=== PATIENT | female | born 1985 | race Caucasian/White ===

== ENCOUNTER 2016-06-09 07:26 | Emergency (ER) | payer BC ==
[2016-06-09 07:34] VITALS: BP 130/66
--- NOTE | 2016-06-09 07:58 | UC ---
Abdominal Pain Female HPI - HPI Summary HPI Summary: epigastric pain and vomiting x 2 weeks. Came in today because she didn't sleep last pm. - History of Current Complaint Chief Complaint: UCGeneralIllness Stated Complaint: ABD PAIN,VOMITING Time Seen by Provider: 06/09/16 07:50 Hx Obtained From: Patient Hx Last Menstrual Period: 06/02/16 ?: No Onset/Duration: Gradual Onset, Lasting Weeks - 2, Still Present Timing: Constant Severity Initially: Moderate Severity Currently: Severe Pain Intensity: 8 Pain Scale Used: 0-10 Numeric Location: Discrete At: RUQ, Epigastric Radiates: No Character: Sharp Aggravating Factor(s): Nothing Alleviating Factor(s): Nothing Associated Signs and Symptoms: Positive: Vomiting. Negative: Urinary Symptoms - Risk Factors Ectopic Risk Factor: Maternal Age ^ 30 Ovarian Torsion Risk Factor: Reproductive Age Allergies/Adverse Reactions: Allergies Allergy/AdvReac Type Severity Reaction Status Date / Time No Known Allergies Allergy Verified 06/09/16 07:34 Home Medications: Home Medications Omeprazole CAP* [Prilosec CAP* 20 MG] 20 mg PO DAILY 06/09/16 [History Confirmed 06/09/16] buPROPion TAB* [Wellbutrin TAB*] 200 mg PO DAILY 06/09/16 [History Confirmed ] PMH/Surg Hx/FS Hx/Imm Hx Endocrine History Of: Reports: Thyroid Disease Denies: Diabetes Cardiovascular History Of: Denies: Hypertension Respiratory History Of: Denies: Asthma GI/ History Of: Denies: Ulcer - Surgical History Surgical History: Yes Surgery Procedure, Year, and Place: Episiotomy, cyst on tailbone removed, tonsils. Esure - Family History Known Family History: Positive: Hypertension - mother, Diabetes - mother and father - Social History Alcohol Use: None Substance Use Type: None Smoking Status (MU): Heavy Every Day Tobacco Smoker Type: Cigarettes Amount Used/How Often: 9 per day Review of Systems Constitutional: Negative Skin: Negative Eyes: Negative ENT: Negative Respiratory: Negative Cardiovascular: Negative Gastrointestinal: Abdominal Pain, Vomiting Genitourinary: Negative Motor: Negative Neurovascular: Negative Musculoskeletal: Negative Neurological: Negative Psychological: Negative All Other Systems Reviewed And Are Negative: Yes Physical Exam Triage Information Reviewed: Yes Appearance: Ill-Appearing, Pain Distress, Obese Vital Signs: Initial Vital Signs Temp 97.3 F 06/09/16 07:30 Pulse 104 06/09/16 07:30 Resp 14 06/09/16 07:30 BP 130/66 06/09/16 07:30 Pulse Ox 100 06/09/16 07:30 Vital Signs Reviewed: Yes Eyes: Positive: Conjunctiva Clear ENT: Positive: Hearing grossly normal. Negative: Muffled/hoarse voice Neck: Positive: Supple Respiratory: Positive: Lungs clear, Normal breath sounds, No respiratory distress Cardiovascular: Positive: RRR, No Murmur, Pulses Normal, Brisk Capillary Refill Abdomen Description: Positive: No Organomegaly, Soft, Guarding - RUQ, Other: - tender RUQ. Negative: CVA Tenderness (R), CVA Tenderness (L), Distended, McBurney's Point Tenderness, Peritoneal Signs Bowel Sounds: Positive: Present Musculoskeletal: Positive: Strength Intact, ROM Intact Neurological: Positive: Alert, Muscle Tone Normal Psychological Exam: Normal Skin Exam: Normal Abd Pain Female Course/Dx - Differential Dx/Diagnosis Differential Diagnosis: Appendicitis, Gall Bladder Disease, Renal Colic Provider Diagnoses: RUQ pain - Physician Notification/Consults Time Discussed With Above Provider: 08:10 - Dr. Taylor at [facility] Discharge - Discharge Plan Condition: Stable Disposition: AGAINST MEDICAL ADVICE Discharge Disposition Comment: Pt signs AMA to go by private car to [facility] for further eval of RUQ pain
[2016-06-09] MEDS ORDERED: Ondansetron ODT TAB* 4 MG PO ONE (08:02)
== END 2016-06-09 08:28 | disposition left against medical advice (07) ==
LOC: UCCORT 07:26
DX: R10.11 Right upper quadrant pain (principal); E66.9 Obesity, unspecified; F17.210 Nicotine dependence, cigarettes, uncomplicated
CPT/HCPCS: 99213; A9270-GY; G0463